=== PATIENT | male | born 1970 | race Caucasian/White ===

== ENCOUNTER 2020-09-09 12:41 | Inpatient (IN) | payer MEDICARE ==
[2020-09-09] MEDS ORDERED: Piperacillin/Tazobactam 3.375 GM VIAL ONE (14:12)
[2020-09-09] MEDS ORDERED: VANCOMYCIN 2 GRAM/400 ML BAG 2 GM in Premix Bag 1 BAG IVPB SCH (14:30)
[2020-09-09 14:35] LABS: #Basophils 0.1 10x3/uL (0.0-0.2); #Eosinphils 0.3 10x3/uL (0.0-0.5); #Monocytes 1.4 10x3/uL (0.0-1.1); #Neutrophils 15.6 10x3/uL (1.5-8.4); %Basophils 0.5 % (0.0-2.0); %Eosinophils 1.4 % (0.0-6.0); %Lymphocytes 5.6 % (18.0-47.0); %Monocytes 7.4 % (0.0-10.0); %Neutrophils 83.6 % (40.0-75.0); Hemoglobin 11.9 g/dL (13.5-17.5); Mean Corpuscular Hemoglobin 34.1 pg (27.0-33.0); Mean Corpuscular Volume 100.3 fl (81.2-95.1); Mean Platelet Volume 10.4 fl (7.4-10.4); Platelet Count 136 10x3/uL (150-450); Red Blood Cell (RBC) Count 3.49 10x6/uL (4.32-5.72); White Blood Cell (WBC) Count 18.7 10x3/uL (3.5-10.5)
[2020-09-09 14:45] LABS: ALT (SGPT) 18 U/L (8-55); AST (SGOT) 41 U/L (5-34); Albumin 1.9 g/dL (3.5-5.0); Alkaline Phosphatase 288 U/L (40-110); Anion Gap 18 mmol/L (10-20); BUN (Urea Nitrogen) 18 mg/dL (8.4-25.7); Bilirubin, Total 7.5 mg/dL (0.2-1.2); CK (CPK) 97 U/L (30-200); Calc. Creatinine Clearance 0 mL/min (70-130); Calcium 8.3 mg/dL (7.8-10.44); Carbon Dioxide 24 mmol/L (22-29); Chloride 88 mmol/L (98-107); Globulin 4.4 g/dL (2.4-3.5); Lipase 66 U/L (8-78); Potassium 3.3 mmol/L (3.5-5.1); Protein, Total 6.3 g/dL (6.0-8.3); Sodium 127 mmol/L (136-145)
[2020-09-09 14:54] LABS: Glucose 705 mg/dL (70-105)
[2020-09-09] MEDS ORDERED: Multivitamins, Adult 10 ML, Thiamine HCl 100 MG, Folic Acid 1 MG in Dextrose 5 %-0.45 %... IV SCH (15:15)
[2020-09-09] MEDS ORDERED: THIAMINE HCL IV SCH (15:15)
[2020-09-09] MEDS ORDERED: MULTIVITAMINS IV SCH (15:15)
[2020-09-09] MEDS ORDERED: [UNRECOGNIZED DRUG - OTHER] IV SCH (15:15)
[2020-09-09] MEDS ORDERED: FOLIC ACID IV SCH (15:15)
[2020-09-09] MEDS ORDERED: INSULIN REGULAR IN 0.9 % NACL 100 UNIT/100 ML BAG ONE (15:42)
[2020-09-09] MEDS ORDERED: Calcium Carbonate 500 MG ChewTAB PO PRN (16:02)
[2020-09-09] MEDS ORDERED: Acetaminophen 650 MG Suppository PR PRN (16:02)
[2020-09-09] MEDS ORDERED: HUMULIN R 100 UNITS in Sodium Chloride 0.9% 100 ML IVPB SCH (16:15)
[2020-09-09 16:48] VITALS: BMI 44.2
[2020-09-09 17:01] LABS: Bilirubin Neg (Negative); Blood, Urine 25 (Negative); Clarity Cloudy (Clear); Glucose, Urine (Dipstick) >=1000 mg/dL (Negative); Ketone, Urine Negative (Negative); Leukocyte 25 (Negative); Nitrite Negative (Negative); Protein, Urine (Dipstick) Negative (Neg-Trace); Specific Gravity, Urine 1.005 (1.002-1.036)
[2020-09-09 17:04] LABS: Troponin I Less than 0.010 ng/mL (< 0.028)
[2020-09-09 17:22] LABS: Squamous Epithelial 0-3 HPF (0-3); Yeast-Budding 4+ HPF (None Seen)
[2020-09-09] MEDS ORDERED: Potassium Chloride 20 MEQ TAB PO SCH (17:30)
[2020-09-09] MEDS ORDERED: FLU VACC QS2020-21(6MOS UP)/PF 60 MCG/0.5 ML SYRINGE IM ONE (19:00)
[2020-09-09] MEDS ORDERED: Prevnar 13-Val Conj/PF 0.5 ML SYRINGE IM ONE (19:00)
[2020-09-09 19:28] LABS: Anion Gap 15 mmol/L (10-20); BUN (Urea Nitrogen) 18 mg/dL (8.4-25.7); Calc. Creatinine Clearance 167 mL/min (70-130); Calcium 8.2 mg/dL (7.8-10.44); Carbon Dioxide 26 mmol/L (22-29); Chloride 90 mmol/L (98-107); Potassium 3.7 mmol/L (3.5-5.1); Sodium 127 mmol/L (136-145)
[2020-09-09 19:41] LABS: Glucose 661 mg/dL (70-105)
[2020-09-09 21:29] LABS: Anion Gap 17 mmol/L (10-20); BUN (Urea Nitrogen) 19 mg/dL (8.4-25.7); Calc. Creatinine Clearance 190 mL/min (70-130); Calcium 8.3 mg/dL (7.8-10.44); Carbon Dioxide 25 mmol/L (22-29); Chloride 91 mmol/L (98-107); Glucose 506 mg/dL (70-105); Potassium 3.9 mmol/L (3.5-5.1); Sodium 129 mmol/L (136-145)
[2020-09-09 21:30] LABS: Lactic Acid 6.2 mmol/L (0.5-2.2)
[2020-09-09] MEDS: Rifaximin 550 MG TAB PO SCH (21:35)
[2020-09-09] MEDS: CEFAZOLIN 2 GM in Premix Bag 1 BAG IVPB SCH (21:35)
[2020-09-09 21:36] LABS: Troponin I Less than 0.010 ng/mL (< 0.028)
[2020-09-09] MEDS ORDERED: Sodium Chloride 0.9% 1,000 ML IV SCH (21:45)
[2020-09-10 01:32] LABS: Anion Gap 15 mmol/L (10-20); BUN (Urea Nitrogen) 19 mg/dL (8.4-25.7); Calc. Creatinine Clearance 156 mL/min (70-130); Calcium 8.5 mg/dL (7.8-10.44); Carbon Dioxide 27 mmol/L (22-29); Chloride 92 mmol/L (98-107); Glucose 338 mg/dL (70-105); Potassium 3.6 mmol/L (3.5-5.1); Sodium 130 mmol/L (136-145)
[2020-09-10 03:44] LABS: SARS-CoV-2 PCR by NAA Not Detected (NotDetected)
[2020-09-10 05:29] LABS: Lactic Acid 2.3 mmol/L (0.5-2.2)
[2020-09-10 05:33] LABS: ALT (SGPT) 17 U/L (8-55); AST (SGOT) 42 U/L (5-34); Albumin 1.9 g/dL (3.5-5.0); Alkaline Phosphatase 264 U/L (40-110); Anion Gap 13 mmol/L (10-20); BUN (Urea Nitrogen) 19 mg/dL (8.4-25.7); Bilirubin, Total 7.7 mg/dL (0.2-1.2); Calc. Creatinine Clearance 166 mL/min (70-130); Calcium 8.5 mg/dL (7.8-10.44); Carbon Dioxide 29 mmol/L (22-29); Chloride 93 mmol/L (98-107); Globulin 4.4 g/dL (2.4-3.5); Glucose 229 mg/dL (70-105); Hemoglobin 11.7 g/dL (13.5-17.5); Mean Corpuscular HGB CONC 34.9 g/dL (32.0-36.0); Mean Corpuscular Volume 97.4 fl (81.2-95.1); Mean Platelet Volume 10.2 fl (7.4-10.4); Platelet Count 127 10x3/uL (150-450); Potassium 3.6 mmol/L (3.5-5.1); Protein, Total 6.3 g/dL (6.0-8.3); RBC Distribution Width 16.2 % (11.5-14.5); Red Blood Cell (RBC) Count 3.44 10x6/uL (4.32-5.72); Sodium 131 mmol/L (136-145); White Blood Cell (WBC) Count 15.7 10x3/uL (3.5-10.5)
[2020-09-10 05:52] LABS: MDiff Complete? YES
[2020-09-10 05:58] LABS: Band 5 % (5-11); Lymphocytes 14 % (21-51); Neutrophil 65 % (42-75)
[2020-09-10 05:59] LABS: Anisocytosis MODERATE=16-30 cells (100X) (0-5/hpf); Eosinophils 12 % (0-10); Hypochromia SLIGHT = 6-15 cells (100X) (0-5/hpf); Monocytes 4 % (0-10); Poikilocytosis SLIGHT = 6-15 cells (100X) (0-5/hpf)
[2020-09-10 06:01] LABS: Platelet Morphology Comment Appears Decreased
[2020-09-10] MEDS: CEFAZOLIN 2 GM in Premix Bag 1 BAG IVPB SCH ×3 (06:35→22:43)
[2020-09-10] MEDS ORDERED: Lantus 1000 UNITS/10 ML VIAL SC SCH (09:00)
[2020-09-10] MEDS ORDERED: Furosemide 40 MG TAB PO SCH ×2 (09:00)
[2020-09-10] MEDS ORDERED: Dextrose 5% in Water 1,000 ML IV PRN (09:01)
[2020-09-10] MEDS ORDERED: Dextrose 50% Abboject 50 ML SYRINGE SLOW IVP PRN (09:01)
[2020-09-10] MEDS ORDERED: Sodium Bicarbonate 2.5 MEQ/5 ML VIAL ONE (09:26)
[2020-09-10] MEDS ORDERED: Lidocaine 1% PF 5 ML VIAL ONE (09:26)
[2020-09-10 09:27] LABS: Anion Gap 12 mmol/L (10-20); BUN (Urea Nitrogen) 20 mg/dL (8.4-25.7); Calc. Creatinine Clearance 163 mL/min (70-130); Calcium 8.4 mg/dL (7.8-10.44); Carbon Dioxide 29 mmol/L (22-29); Chloride 95 mmol/L (98-107); Glucose 175 mg/dL (70-105); Potassium 3.9 mmol/L (3.5-5.1); Sodium 132 mmol/L (136-145)
[2020-09-10] MEDS: Enoxaparin Sodium 40 MG/0.4 ML SYRINGE SC SCH (12:34)
[2020-09-10] MEDS: Spironolactone 25 MG TAB PO SCH (12:35)
[2020-09-10] MEDS: Rifaximin 550 MG TAB PO SCH ×2 (12:35→22:42)
[2020-09-10] MEDS: Folic Acid 1 MG TAB PO SCH (12:35)
[2020-09-10] MEDS: Thiamine 100 MG TAB PO SCH (12:35)
[2020-09-10] MEDS: Furosemide 40 MG TAB PO SCH (12:35)
[2020-09-10 12:57] LABS: Anion Gap 12 mmol/L (10-20); BUN (Urea Nitrogen) 21 mg/dL (8.4-25.7); Calc. Creatinine Clearance 199 mL/min (70-130); Calcium 8.2 mg/dL (7.8-10.44); Carbon Dioxide 29 mmol/L (22-29); Chloride 94 mmol/L (98-107); Glucose 193 mg/dL (70-105); Potassium 4.8 mmol/L (3.5-5.1); Sodium 130 mmol/L (136-145)
[2020-09-10] MEDS: Empagliflozin 10 MG TAB PO SCH (13:51)
[2020-09-10 15:38] LABS: Body Fluid Source Ascites Body Fluid
[2020-09-10 15:39] LABS: BF Color Yellow; Clarity Cloudy/Turbid (Clear); Tube # 1
[2020-09-10] MEDS: HumaLOG 300 UNITS/3 ML VIAL SC PRN ×2 (16:21→22:46)
[2020-09-10] MEDS ORDERED: INSULIN REGULAR IN 0.9 % NACL 100 UNIT in Premix Bag 1 BAG IVPB SCH (18:00)
[2020-09-10 18:18] LABS: Anion Gap 14 mmol/L (10-20); BUN (Urea Nitrogen) 21 mg/dL (8.4-25.7); Calc. Creatinine Clearance 221 mL/min (70-130); Calcium 8.1 mg/dL (7.8-10.44); Carbon Dioxide 27 mmol/L (22-29); Chloride 95 mmol/L (98-107); Glucose 257 mg/dL (70-105); Potassium 4.9 mmol/L (3.5-5.1); Sodium 131 mmol/L (136-145)
[2020-09-10] MEDS ORDERED: Albumin 25% 25 GM/100 ML BOT IVPB SCH (20:20)
[2020-09-11 04:13] LABS: #Basophils 0.1 10x3/uL (0.0-0.2); #Eosinphils 0.3 10x3/uL (0.0-0.5); #Monocytes 1.2 10x3/uL (0.0-1.1); #Neutrophils 5.7 10x3/uL (1.5-8.4); %Basophils 0.9 % (0.0-2.0); %Eosinophils 3.7 % (0.0-6.0); %Lymphocytes 14.6 % (18.0-47.0); %Monocytes 13.8 % (0.0-10.0); %Neutrophils 66.2 % (40.0-75.0); Hemoglobin 9.3 g/dL (13.5-17.5); Mean Corpuscular HGB CONC 34.7 g/dL (32.0-36.0); Mean Corpuscular Hemoglobin 33.5 pg (27.0-33.0); Mean Corpuscular Volume 96.4 fl (81.2-95.1); Mean Platelet Volume 10.3 fl (7.4-10.4); Platelet Count 98 10x3/uL (150-450); RBC Distribution Width 16.5 % (11.5-14.5); Red Blood Cell (RBC) Count 2.78 10x6/uL (4.32-5.72); White Blood Cell (WBC) Count 8.6 10x3/uL (3.5-10.5)
[2020-09-11 04:24] LABS: ALT (SGPT) 12 U/L (8-55); AST (SGOT) 39 U/L (5-34); Albumin 1.6 g/dL (3.5-5.0); Alkaline Phosphatase 148 U/L (40-110); Anion Gap 11 mmol/L (10-20); BUN (Urea Nitrogen) 23 mg/dL (8.4-25.7); Calc. Creatinine Clearance 210 mL/min (70-130); Calcium 8.1 mg/dL (7.8-10.44); Carbon Dioxide 30 mmol/L (22-29); Chloride 95 mmol/L (98-107); Globulin 3.4 g/dL (2.4-3.5); Glucose 293 mg/dL (70-105); Potassium 4.1 mmol/L (3.5-5.1); Sodium 132 mmol/L (136-145)
[2020-09-11] MEDS: CEFAZOLIN 2 GM in Premix Bag 1 BAG IVPB SCH ×3 (05:01→22:18)
[2020-09-11] MEDS: HumaLOG 300 UNITS/3 ML VIAL SC PRN ×2 (06:29→12:59)
[2020-09-11] MEDS ORDERED: Insulin Glargine 10 UNITS in Pre-Filled Syringe 1 EACH SC SCH (09:00)
[2020-09-11] MEDS: Spironolactone 25 MG TAB PO SCH ×2 (10:20→17:42)
[2020-09-11] MEDS: Empagliflozin 10 MG TAB PO SCH (10:20)
[2020-09-11] MEDS: Acetaminophen 325 MG TAB PO PRN (10:20)
[2020-09-11] MEDS: Rifaximin 550 MG TAB PO SCH ×2 (10:20→22:16)
[2020-09-11] MEDS: Thiamine 100 MG TAB PO SCH (10:21)
[2020-09-11] MEDS: Furosemide 40 MG TAB PO SCH (10:21)
[2020-09-11] MEDS: Folic Acid 1 MG TAB PO SCH (10:21)
[2020-09-11] MEDS: Lantus 1000 UNITS/10 ML VIAL SC SCH (10:27)
[2020-09-11] MEDS: Enoxaparin Sodium 40 MG/0.4 ML SYRINGE SC SCH (10:29)
[2020-09-11] MEDS: Furosemide 40 MG/4 ML VIAL SLOW IVP SCH (19:43)
[2020-09-12 05:08] LABS: Anion Gap 10 mmol/L (10-20); BUN (Urea Nitrogen) 23 mg/dL (8.4-25.7); Calc. Creatinine Clearance 218 mL/min (70-130); Calcium 8.1 mg/dL (7.8-10.44); Carbon Dioxide 31 mmol/L (22-29); Chloride 95 mmol/L (98-107); Glucose 303 mg/dL (70-105); Potassium 4.2 mmol/L (3.5-5.1); Sodium 132 mmol/L (136-145)
[2020-09-12 05:15] LABS: #Basophils 0.1 10x3/uL (0.0-0.2); #Eosinphils 0.3 10x3/uL (0.0-0.5); #Monocytes 1.2 10x3/uL (0.0-1.1); #Neutrophils 3.9 10x3/uL (1.5-8.4); %Eosinophils 4.3 % (0.0-6.0); %Lymphocytes 18.1 % (18.0-47.0); %Monocytes 17.4 % (0.0-10.0); %Neutrophils 58.6 % (40.0-75.0); Hemoglobin 9.5 g/dL (13.5-17.5); Mean Corpuscular HGB CONC 34.1 g/dL (32.0-36.0); Mean Corpuscular Hemoglobin 33.6 pg (27.0-33.0); Mean Corpuscular Volume 98.6 fl (81.2-95.1); Mean Platelet Volume 10.3 fl (7.4-10.4); Platelet Count 94 10x3/uL (150-450); RBC Distribution Width 16.9 % (11.5-14.5); Red Blood Cell (RBC) Count 2.83 10x6/uL (4.32-5.72); White Blood Cell (WBC) Count 6.7 10x3/uL (3.5-10.5)
[2020-09-12] MEDS: CEFAZOLIN 2 GM in Premix Bag 1 BAG IVPB SCH ×3 (05:17→22:57)
[2020-09-12] MEDS: Furosemide 40 MG/4 ML VIAL SLOW IVP SCH ×2 (05:18→12:49)
[2020-09-12] MEDS: HumaLOG 300 UNITS/3 ML VIAL SC PRN ×3 (06:18→21:45)
[2020-09-12] MEDS: Empagliflozin 10 MG TAB PO SCH (11:26)
[2020-09-12] MEDS: Enoxaparin Sodium 40 MG/0.4 ML SYRINGE SC SCH (11:26)
[2020-09-12] MEDS: Spironolactone 25 MG TAB PO SCH ×2 (11:26→17:25)
[2020-09-12] MEDS: Folic Acid 1 MG TAB PO SCH (11:26)
[2020-09-12] MEDS: Rifaximin 550 MG TAB PO SCH ×2 (11:27→21:45)
[2020-09-12] MEDS: Lantus 1000 UNITS/10 ML VIAL SC SCH (12:48)
[2020-09-12] MEDS: Thiamine 100 MG TAB PO SCH (12:49)
[2020-09-13] MEDS: CEFAZOLIN 2 GM in Premix Bag 1 BAG IVPB SCH ×3 (06:55→21:16)
[2020-09-13] MEDS: Lantus 1000 UNITS/10 ML VIAL SC SCH (08:58)
[2020-09-13] MEDS: Furosemide 40 MG TAB PO SCH (08:59)
[2020-09-13] MEDS: Folic Acid 1 MG TAB PO SCH (08:59)
[2020-09-13] MEDS: Rifaximin 550 MG TAB PO SCH ×2 (08:59→21:15)
[2020-09-13] MEDS: Thiamine 100 MG TAB PO SCH (08:59)
[2020-09-13] MEDS: Spironolactone 25 MG TAB PO SCH ×2 (08:59→16:54)
[2020-09-13] MEDS: Empagliflozin 10 MG TAB PO SCH (08:59)
[2020-09-13] MEDS ORDERED: PROPOFOL 20 ML ONE (11:04)
[2020-09-13] MEDS: Acetaminophen 325 MG TAB PO PRN (14:35)
[2020-09-13] MEDS: HumaLOG 300 UNITS/3 ML VIAL SC PRN ×2 (16:54→21:17)
[2020-09-14 05:01] LABS: #Basophils 0.1 10x3/uL (0.0-0.2); #Eosinphils 0.5 10x3/uL (0.0-0.5); #Monocytes 1.2 10x3/uL (0.0-1.1); #Neutrophils 4.4 10x3/uL (1.5-8.4); %Basophils 1.2 % (0.0-2.0); %Eosinophils 6.3 % (0.0-6.0); %Monocytes 16.7 % (0.0-10.0); %Neutrophils 60.1 % (40.0-75.0); Hemoglobin 9.9 g/dL (13.5-17.5); Mean Platelet Volume 10.5 fl (7.4-10.4); Platelet Count 98 10x3/uL (150-450); RBC Distribution Width 17.2 % (11.5-14.5); Red Blood Cell (RBC) Count 2.91 10x6/uL (4.32-5.72); White Blood Cell (WBC) Count 7.4 10x3/uL (3.5-10.5)
[2020-09-14 05:02] LABS: Anion Gap 10 mmol/L (10-20); BUN (Urea Nitrogen) 15 mg/dL (8.4-25.7); Calc. Creatinine Clearance 242 mL/min (70-130); Carbon Dioxide 33 mmol/L (22-29); Chloride 93 mmol/L (98-107); Glucose 275 mg/dL (70-105); Potassium 4.2 mmol/L (3.5-5.1); Sodium 132 mmol/L (136-145)
[2020-09-14] MEDS: CEFAZOLIN 2 GM in Premix Bag 1 BAG IVPB SCH ×3 (06:06→21:32)
[2020-09-14] MEDS: HumaLOG 300 UNITS/3 ML VIAL SC PRN ×4 (06:09→21:32)
[2020-09-14] MEDS: Acetaminophen 325 MG TAB PO PRN (09:01)
[2020-09-14] MEDS: Spironolactone 25 MG TAB PO SCH ×2 (09:01→16:31)
[2020-09-14] MEDS: Folic Acid 1 MG TAB PO SCH (09:01)
[2020-09-14] MEDS: Rifaximin 550 MG TAB PO SCH ×2 (09:01→21:32)
[2020-09-14] MEDS: Lantus 1000 UNITS/10 ML VIAL SC SCH (09:02)
[2020-09-14] MEDS: Thiamine 100 MG TAB PO SCH (09:02)
[2020-09-14] MEDS: Empagliflozin 10 MG TAB PO SCH (09:02)
[2020-09-14] MEDS: Furosemide 40 MG TAB PO SCH (09:02)
[2020-09-15] MEDS: CEFAZOLIN 2 GM in Premix Bag 1 BAG IVPB SCH ×3 (05:55→22:56)
[2020-09-15] MEDS: HumaLOG 300 UNITS/3 ML VIAL SC PRN ×4 (05:58→20:33)
[2020-09-15 06:00] LABS: Anion Gap 11 mmol/L (10-20); BUN (Urea Nitrogen) 13 mg/dL (8.4-25.7); Calc. Creatinine Clearance 245 mL/min (70-130); Calcium 7.9 mg/dL (7.8-10.44); Carbon Dioxide 33 mmol/L (22-29); Chloride 91 mmol/L (98-107); Glucose 303 mg/dL (70-105); Potassium 4.3 mmol/L (3.5-5.1); Sodium 131 mmol/L (136-145)
[2020-09-15 06:05] LABS: #Basophils 0.1 10x3/uL (0.0-0.2); #Eosinphils 0.5 10x3/uL (0.0-0.5); #Monocytes 1.1 10x3/uL (0.0-1.1); #Neutrophils 3.7 10x3/uL (1.5-8.4); %Basophils 1.2 % (0.0-2.0); %Eosinophils 7.4 % (0.0-6.0); %Lymphocytes 17.3 % (18.0-47.0); %Monocytes 16.4 % (0.0-10.0); %Neutrophils 56.8 % (40.0-75.0); Hemoglobin 9.9 g/dL (13.5-17.5); Mean Platelet Volume 10.4 fl (7.4-10.4); Platelet Count 96 10x3/uL (150-450); RBC Distribution Width 17.2 % (11.5-14.5); Red Blood Cell (RBC) Count 2.91 10x6/uL (4.32-5.72); White Blood Cell (WBC) Count 6.5 10x3/uL (3.5-10.5)
[2020-09-15] MEDS: Spironolactone 25 MG TAB PO SCH ×2 (09:05→16:16)
[2020-09-15] MEDS: Folic Acid 1 MG TAB PO SCH (09:06)
[2020-09-15] MEDS: Acetaminophen 325 MG TAB PO PRN (09:06)
[2020-09-15] MEDS: Furosemide 40 MG TAB PO SCH (09:06)
[2020-09-15] MEDS: Rifaximin 550 MG TAB PO SCH ×2 (09:06→20:17)
[2020-09-15] MEDS: Thiamine 100 MG TAB PO SCH (09:06)
[2020-09-15] MEDS: Empagliflozin 10 MG TAB PO SCH (09:06)
[2020-09-15] MEDS: Lantus 1000 UNITS/10 ML VIAL SC SCH (09:07)
[2020-09-16 04:47] LABS: #Basophils 0.1 10x3/uL (0.0-0.2); #Eosinphils 0.4 10x3/uL (0.0-0.5); #Monocytes 1.1 10x3/uL (0.0-1.1); %Basophils 0.9 % (0.0-2.0); %Eosinophils 4.5 % (0.0-6.0); %Monocytes 14.4 % (0.0-10.0); %Neutrophils 62.6 % (40.0-75.0); Hemoglobin 9.7 g/dL (13.5-17.5); Mean Corpuscular HGB CONC 34.2 g/dL (32.0-36.0); Mean Corpuscular Hemoglobin 34.3 pg (27.0-33.0); Mean Corpuscular Volume 100.4 fl (81.2-95.1); Platelet Count 91 10x3/uL (150-450); RBC Distribution Width 17.4 % (11.5-14.5); Red Blood Cell (RBC) Count 2.83 10x6/uL (4.32-5.72); White Blood Cell (WBC) Count 7.9 10x3/uL (3.5-10.5)
[2020-09-16 04:59] LABS: Anion Gap 12 mmol/L (10-20); BUN (Urea Nitrogen) 12 mg/dL (8.4-25.7); Calc. Creatinine Clearance 232 mL/min (70-130); Carbon Dioxide 32 mmol/L (22-29); Chloride 90 mmol/L (98-107); Glucose 334 mg/dL (70-105); Potassium 4.4 mmol/L (3.5-5.1); Sodium 130 mmol/L (136-145)
[2020-09-16] MEDS: CEFAZOLIN 2 GM in Premix Bag 1 BAG IVPB SCH (06:52)
[2020-09-16] MEDS: HumaLOG 300 UNITS/3 ML VIAL SC PRN (08:48)
[2020-09-16] MEDS: Lantus 1000 UNITS/10 ML VIAL SC SCH (08:48)
[2020-09-16] MEDS: Folic Acid 1 MG TAB PO SCH (11:06)
[2020-09-16] MEDS: Furosemide 40 MG TAB PO SCH (11:06)
[2020-09-16] MEDS: Empagliflozin 10 MG TAB PO SCH (11:06)
[2020-09-16] MEDS: Spironolactone 25 MG TAB PO SCH (11:06)
[2020-09-16] MEDS: Rifaximin 550 MG TAB PO SCH (11:07)
[2020-09-16] MEDS: Thiamine 100 MG TAB PO SCH (11:07)
[2020-09-16] MEDS ORDERED: Lidocaine 1% PF 5 ML VIAL ONE (13:24)
[2020-09-16] MEDS ORDERED: Sodium Bicarbonate 2.5 MEQ/5 ML VIAL ONE (13:26)
[2020-09-16 16:21] VITALS: BP 122/64; TEMP 97.3
== END 2020-09-16 16:45 | disposition home or self-care (01) | DRG 871 ==
LOC: CSHERS 12:41 → CSHICU 16:14 → CSHTELE 09-10 21:26
PROVIDERS: ADMIT Internal Medicine; ATTEND Internal Medicine
PROC: 02HV33Z Insertion of Infusion Device into Superior Vena Cava, Percutaneous Approach (ICD-10-PCS; principal; 2020-09-10)
PROC: B548ZZA Ultrasonography of Superior Vena Cava, Guidance (ICD-10-PCS; 2020-09-10)
PROC: 0W9G3ZZ Drainage of Peritoneal Cavity, Percutaneous Approach (ICD-10-PCS; 2020-09-10)
PROC: B24BZZ4 Ultrasonography of Heart with Aorta, Transesophageal (ICD-10-PCS; 2020-09-13)
PROC: 0W9G3ZZ Drainage of Peritoneal Cavity, Percutaneous Approach (ICD-10-PCS; 2020-09-16)
DX: A41.01 Sepsis due to Methicillin susceptible Staphylococcus aureus (principal); K65.2 Spontaneous bacterial peritonitis; J96.01 Acute respiratory failure with hypoxia; E87.1 Hypo-osmolality and hyponatremia; J98.11 Atelectasis; K76.6 Portal hypertension; M86.111 Other acute osteomyelitis, right shoulder; Z20.822 Contact with and (suspected) exposure to COVID-19; K70.31 Alcoholic cirrhosis of liver with ascites; F17.220 Nicotine dependence, chewing tobacco, uncomplicated; R65.20 Severe sepsis without septic shock; Z79.899 Other long term (current) drug therapy; E11.65 Type 2 diabetes mellitus with hyperglycemia; Z79.84 Long term (current) use of oral hypoglycemic drugs; D63.8 Anemia in other chronic diseases classified elsewhere; D69.6 Thrombocytopenia, unspecified; N50.89 Other specified disorders of the male genital organs
CPT/HCPCS: 36415; 36416; 36569; 49083; 51701; 70450; 71045; 80048; 80053; 81003; 81015; 82010; 82140; 82550; 83605; 83615; 83690; 83735; 84157; 84484; 85007; 85025; 85027; 85652; 86140; 87040; 87070; 87086; 87205; 87635; 89051; 93005; 93010; 93312; 94640; 94760; 96365; 96367; C1751; J0690; J1650; J1815; J1940; J2543; J2704; J3370; J3411; J3490; J7042; J7620; P9047; U0003; U0005

== ENCOUNTER → 2020-11-01 | Day surgery (SDC) | payer MEDICARE ==
[~2020-11-01] MED LIST: Albumin 25% 200 ML ONE; Lidocaine 1% PF 5 ML VIAL ONE; Sodium Bicarbonate 2.5 MEQ/5 ML VIAL ONE
[2020-11-01 13:40] VITALS: BMI 34.0
[2020-11-01 13:42] VITALS: BP 122/65; TEMP 98
[2020-11-01 15:28] LABS: Body Fluid Source Ascites Body Fluid; Tube # EDTA
[2020-11-01 15:29] LABS: BF Color Yellow; Clarity Cloudy/Turbid (Clear)
== END ==
LOC: CSHULT 11:01
PROVIDERS: ATTEND Physician Assistant Medical
DX: R18.8 Other ascites (principal); K70.30 Alcoholic cirrhosis of liver without ascites; K72.90 Hepatic failure, unspecified without coma; I85.00 Esophageal varices without bleeding; K22.70 Barrett's esophagus without dysplasia
CPT/HCPCS: 49083; 82042; 84157; 87070; 87205; 89051; P9047; 88112